=== PATIENT | male | born 1975 | race African-American/Black ===

== ENCOUNTER 2016-09-11 08:59 | Emergency (ER) | payer MEDICAID, OTHER ==
[~2016-09-11] VITALS: Ht 172.7 cm; Wt 81.6 kg
[2016-09-11] MEDS ORDERED: SODIUM CHLORIDE 0.9% 1,000 ML IV ONE (10:55)
[2016-09-11] MEDS ORDERED: ALPRAZolam 0.5 MG TAB PO ONE (11:00)
[2016-09-11 11:19] LABS: Basophils # (auto) 0 uL; Basophils % (auto) 0.2 % (0.0-2.0); Eosinophils # (auto) 0 uL; Hematocrit 46.8 % (41.0-53.0); Hemoglobin 16.1 g/dL (13.5-17.5); Lymphocytes # (auto) 0.7 uL; Mean Corpuscular Hemoglobin 29.3 pg (28.0-32.0); Mean Corpuscular Hgb Conc. 34.4 g/dL (32.0-36.0); Mean Corpuscular Volume 85.3 fL (80.0-100.0); Mean Platelet Volume 7.7 fL (7.4-10.4); Monocytes # (auto) 0.2 uL; Monocytes % (auto) 3.7 % (0.0-12.0); Neutrophils # (auto) 4.3 uL; Neutrophils % (auto) 83.1 % (37.0-80.0); Platelet Count (auto) 214 10^3/uL (140-450); Red Cell Distribution Width 13.3 % (11.6-16.0); White Blood Cell 5.2 10^3/uL (4.4-10.8)
[2016-09-11 11:36] LABS: Albumin 4.1 g/dL (3.4-5.0); Alkaline Phosphatase 67 U/L (45-117); Anion Gap 8 (5-15); Aspartate Aminotransferase 15 U/L (15-37); BUN/Creatinine Ratio 13.3; Bilirubin, Total 0.9 mg/dL (0.2-1.0); Blood Urea Nitrogen 11 mg/dL (7-18); Calcium 8.4 mg/dL (8.5-10.1); Carbon Dioxide 27 mmol/L (21-32); Chloride 108 mmol/L (98-107); GFR African American 133 mL/min; GFR Non-African American 110 mL/min; Glucose 143 mg/dL (74-106); Magnesium 1.8 mg/dL (1.6-2.6); Potassium 3.9 mmol/L (3.5-5.1); Sodium 143 mmol/L (136-145); Total Protein 7.5 g/dL (6.4-8.2)
[2016-09-11 12:58] VITALS: BP 136/97
== END 2016-09-11 13:52 | disposition home or self-care (01) ==
LOC: ER 08:59 → EDBD 08:59 → ER 13:51
DX: F43.20 Adjustment disorder, unspecified (principal); R55 Syncope and collapse; R07.89 Other chest pain; R73.9 Hyperglycemia, unspecified
CPT/HCPCS: 36415; 71020; 80053; 80320; 82962; 83735; 85025; 93005; 94761; 96360; 99285; J7030